=== PATIENT | male | born 2000 | race American Indian/Alaskan Native ===

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

== ENCOUNTER 2019-09-01 22:40 | Emergency (ER) | payer SELFPAY ==
[2019-09-01 22:48] VITALS: BP 111/76
== END 2019-09-01 23:15 | disposition left against medical advice (07) ==
LOC: ED 22:40
DX: M79.601 Pain in right arm (principal); Z53.21 Procedure and treatment not carried out due to patient leaving prior to being seen by health care provider

== ENCOUNTER 2019-11-09 12:14 | Emergency (ER) | payer SELFPAY ==
--- NOTE | 2019-11-09 13:03 | Emergency Department Report ---
ED Psych HPI - General Chief Complaint: Psych Stated Complaint: EVALUATION Time Seen by Provider: 11/09/19 12:27 Source: patient Mode of arrival: Ambulatory - History of Present Illness Initial Comments: Patient is a 18-year-old F [place] male with a past medical history of anxiety and depression and previous suicide attempts with cutting who is presenting with suicidal ideations. Patient states that he told his mother earlier today that had he not had a child he would kill himself and that he took a phone cord and placed it behind his neck. Mother states that over the last 24 hours herself and his father had to remove cords around his neck during suicide attempts 3 ti mes. Last time was a cord from a vacuum parts cleaner that the patient was attempting to hang himself. Patient seems to be minimizing these episodes. - Related Data Home Medications Medication Instructions Recorded Confirmed Last Taken Divalproex ER [DepaKOTE ER] 500 mg PO QDAY 05/14/16 04/01/17 10/23/16 Allergies Allergy/AdvReac Type Severity Reaction Status Date / Time No Known Allergies Allergy Verified 05/13/16 20:17 ED Review of Systems ROS: Stated complaint: EVALUATION Other details as noted in HPI Comment: All other systems reviewed and negative ED Past Medical Hx - Past Medical History Previous Medical History?: Yes Hx Hypertension: No Hx CVA: No Hx Heart Attack/AMI: No Hx Congestive Heart Failure: No Hx Diabetes: No Hx Deep Vein Thrombosis: No Hx Pulmonary Embolism: Yes (adhd bipolar) Hx GERD: No Hx Liver Disease: No Hx Renal Disease: No Hx Sickle Cell Disease: No Hx Arthritis: No Hx Headaches / Migraines: No Hx Seizures: No Hx Kidney Stones: No Hx Psychiatric Treatment: Yes (ADHD, bipolar disorder) Hx Asthma: No Hx COPD: No Hx Tuberculosis: No Hx Dementia: No Hx HIV: No Additional medical history: Patient states he was in school until March 2016 - Surgical History Hx Coronary Stent: No Hx Open Heart Surgery: No Hx Pacemaker: No Hx Internal Defibrillator: No Hx Cholecystectomy: No Hx Appendectomy: No Hx Breast Surgery: No - Social History Smoking Status: Never Smoker Substance Use Type: Marijuana - Medications Home Medications: Home Medications Medication Instructions Recorded Confirmed Last Taken Type Divalproex ER [DepaKOTE ER] 500 mg PO QDAY 05/14/16 04/01/17 10/23/16 History ED Physical Exam - General Limitations: No Limitations General appearance: alert, in no apparent distress - Head Head exam: Present: atraumatic, normocephalic - Eye Eye exam: Present: normal appearance, PERRL, EOMI - ENT ENT exam: Present: mucous membranes moist - Neck Neck exam: Present: normal inspection - Respiratory Respiratory exam: Present: normal lung sounds bilaterally. Absent: respiratory distress, wheezes, rales, rhonchi - Cardiovascular Cardiovascular Exam: Present: regular rate, normal rhythm. Absent: systolic murmur, diastolic murmur, rubs, gallop - GI/Abdominal GI/Abdominal exam: Present: soft, normal bowel sounds. Absent: distended, tenderness, guarding, rebound - Rectal Rectal exam: Present: deferred - Extremities Exam Extremities exam: Present: normal inspection - Back Exam Back exam: Present: normal inspection - Neurological Exam Neurological exam: Present: alert, oriented X3, CN II-XII intact, normal gait - Psychiatric Psychiatric exam: Present: depressed, suicidal ideation - Skin Skin exam: Present: warm, dry, intact, normal color. Absent: rash ED Course Vital Signs 11/09/19 13:06 Respiratory 16 Rate O2 Sat by Pulse 99 Oximetry ED Medical Decision Making - Lab Data Result diagrams: 11/09/19 12:42 11/09/19 12:42 - Medical Decision Making Patient is medically cleared. Patient was on the phone and then ran out of the ambulance bay door. Patient prescription is psych scrubs off after leaving. Police were called and notified. Patient has been found at this time at his mother's house new and will be transported back to our emergency department. Critical care attestation.: If time is entered above; I have spent that time in minutes in the direct care of this critically ill patient, excluding procedure time. ED Disposition Clinical Impression: Suicidal behavior Disposition: Z-07 ELOPED Is pt being admited?: No Does the pt Need Aspirin: No Condition: Stable Referrals: PRIMARY CARE, [Primary Care Provider] - 3-5 Days Time of Disposition: 14:21
[2019-11-09 13:13] LABS: Basophils % (Auto) 0.8 % (0.0-1.8); Eosinophils # (Auto) 0.1 K/mm3 (0.0-0.4); Eosinophils % (Auto) 1.4 % (0.0-4.3); Hematocrit 47.7 % (35.5-45.6); Hemoglobin 15.9 gm/dl (11.8-15.2); Lymphocytes # (Auto) 1.4 K/mm3 (1.2-5.4); Lymphocytes % (Auto) 31.1 % (13.4-35.0); Mean Corpuscular HGB Conc 33 % (32-34); Mean Corpuscular Volume 85 fl (84-94); Monocytes # (Auto) 0.4 K/mm3 (0.0-0.8); Monocytes % (Auto) 9.5 % (0.0-7.3); Platelet Count 259 K/mm3 (140-440); Red Blood Count 5.63 M/mm3 (3.65-5.03); Red Cell Distribution Width 14.6 % (13.2-15.2)
[2019-11-09 13:23] LABS: BUN/Creatinine Ratio 16; Blood Urea Nitrogen 13 mg/dL (9-20); Hemolysis Index 17
== END 2019-11-09 15:00 | disposition left against medical advice (07) ==
LOC: ED 12:14
DX: R45.851 Suicidal ideations (principal)
CPT/HCPCS: 36415; 80048; 80320; 85025; 99283; G0480

== ENCOUNTER 2020-02-09 04:38 | Emergency (ER) | payer SELFPAY ==
[2020-02-09 05:06] VITALS: BP 113/66
--- NOTE | 2020-02-09 06:22 | Emergency Department Report ---
Chief Complaint: Urogenital-Male Stated Complaint: STD CHECK, DEPRESSED - HPI History of Present Illness: This is a 19-year-old -[place] male who presents to the emergency room wanting to be tested for herpes. Patient denies any symptoms. Patient states that his girlfriend who is and informed him that she has herpes 3 weeks ago. Patient also reports that he gets depressed about his situation. Patient has a current history of ADHD bipolar disorder. Patient was recently seen here on 12/10/2019 and was refilled his Depakote and tenex for 2 weeks. Patient denies any suicidal or homicidal ideation. - Exam Vital Signs: Vital Signs 02/09/20 04:42 Temperature 97.8 F Pulse Rate 73 Respiratory 20 Rate Blood Pressure 113/66 O2 Sat by Pulse 98 Oximetry Physical Exam: Patient is alert and oriented x3 no acute distress no suicidal ideation patient or homicidal ideation. Patient is ambulatory without difficulties. Patient has an abrasion on his left knee. Full range of motion no swelling. Patient is ambulatory without difficulties. MSE screening note: Focused history and physical exam performed. Due to findings the following was ordered: This is a 19-year-old -E[place] male who presents to the emergency room wanting to be tested for herpes. Patient denies any symptoms. Patient states that his girlfriend who is and informed him that she has herpes 3 weeks ago. Patient also reports that he gets depressed about his situation. Patient has a current history of ADHD bipolar disorder. Patient was recently seen here on 12/10/2019 and was refilled his Depakote and tenex for 2 weeks. Patient denies any suicidal or homicidal ideation. I discussed the patient that he needs to follow-up with a mental health provider. Also discussed with patient he needs to follow-up at the health department. Patient will be given a referral for outpatient mental health resources as well as community-based clinics. ED Disposition for MSE Disposition: Z-07 MED SCREENING EXAM-LEFT Is pt being admited?: No Does the pt Need Aspirin: No Condition: Stable Instructions: Depression (ED), Attention Deficit Hyperactivity Disorder (ED) Additional Instructions: Is very important for you to follow-up with your mental health clinic as well as the health department. I have listed their information below for your convenience. I have also given you a handout for outpatient resources. Referrals: [facility] [Outside] - 3-5 Days [facility] [Outside] - 3-5 Days [facility] [Outside] - 3-5 Days [facility] [Provider Group] - 3-5 Days Forms: Work/School Release Form(ED)
== END 2020-02-09 06:35 | disposition left against medical advice (07) ==
LOC: ED 04:38
DX: F32.9 Major depressive disorder, single episode, unspecified (principal); Z53.21 Procedure and treatment not carried out due to patient leaving prior to being seen by health care provider

== ENCOUNTER 2020-06-10 18:12 | Emergency (ER) | payer SELFPAY | END 2020-06-10 18:48 | disposition left against medical advice (07) | LOC: ED 18:12 | DX: R45.851 Suicidal ideations (principal); Z53.21 Procedure and treatment not carried out due to patient leaving prior to being seen by health care provider ==